=== PATIENT | male | born 1975 | race Caucasian/White ===

== ENCOUNTER 2019-09-22 22:44 | Emergency (ER) | payer MEDICARE, OTHER ==
[2019-09-22 22:55] VITALS: TEMP 98.4
[2019-09-22] MEDS ORDERED: LIDOCAINE 1% INJ 10MG/ML (20 ML MDV) SQ STA (23:03)
[2019-09-22] MEDS ORDERED: DIPH,PERTUS(ACELL)TETVAC-LF 0.5 ML VIAL IM ONE (23:52)
[2019-09-22] MEDS ORDERED: CEPHALEXIN 500 MG CAP PO STA (23:52)
[2019-09-22] MEDS ORDERED: CEPHALEXIN 500MG STARTER PACK 4 CAP BTL PO STA (23:52)
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
[2019-09-23 00:22] VITALS: BP 140/88; PULSE 80; RESP 16
== END 2019-09-23 00:21 | disposition home or self-care (01) ==
LOC: EC 22:44
DX: S80.812A Abrasion, left lower leg, initial encounter (principal); F17.200 Nicotine dependence, unspecified, uncomplicated; Z23 Encounter for immunization; W22.8XXA Striking against or struck by other objects, initial encounter; Y93.55 Activity, bike riding; Y92.828 Other wilderness area as the place of occurrence of the external cause
CPT/HCPCS: 90715; 99283; 12002; 90471; J2001

== ENCOUNTER 2021-07-08 09:58 | Emergency (ER) | payer MEDICARE, OTHER ==
[2021-07-08 10:04] VITALS: RESP 18; TEMP 97.6
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
[2021-07-08 11:06] VITALS: PULSE 89
--- NOTE | 2021-07-08 11:35 | US ---
EXAMINATION TYPE: US venous doppler duplex LE LT DATE OF EXAM: 07/08/2021 11:00 AM COMPARISON: NONE CLINICAL HISTORY: edema. 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 SIDE PERFORMED: Left TECHNIQUE: The lower extremity deep venous system is examined utilizing real time linear array sonog maulik with graded compression, doppler sonography and color-flow sonography. VESSELS IMAGED: Common Femoral Vein Deep Femoral Vein Greater Saphenous Vein * Femoral Vein Popliteal Vein Small Saphenous Vein * Proximal Calf Veins (* superficial vessels) Left Leg: Negative for DVT Grayscale, color doppler, spectral doppler imaging performed of the deep veins of the left lower extr emity. There is normal flow, compressibility, vascular waveforms. IMPRESSION: No ultrasound evidence for acute DVT in the left lower extremity.
[2021-07-08 12:00] VITALS: BP 122/95
== END 2021-07-08 12:01 | disposition home or self-care (01) ==
LOC: EEVIPCON 09:58 → EC 09:58
DX: I87.2 Venous insufficiency (chronic) (peripheral) (principal); I10 Essential (primary) hypertension; F17.200 Nicotine dependence, unspecified, uncomplicated
CPT/HCPCS: 99283

== ENCOUNTER 2022-11-24 12:56 | Emergency (ER) | payer MEDICARE, OTHER ==
[2022-11-24 13:07] VITALS: BP 180/111; PULSE 87; RESP 16; TEMP 97.4
[2022-11-24] MEDS ORDERED: CYCLOBENZAPRINE 10 MG TAB PO STA (13:36)
[2022-11-24] MEDS ORDERED: KETOROLAC 15 MG/ML 1 ML VIAL IM STA (13:36)
[2022-11-24] MEDS ORDERED: LIDOCAINE 5% PATCH TOPICAL STA (13:37)
[2022-11-24] MEDS ORDERED: ACET/COD 300 MG/30 MG STARTER PACK 6 TAB BTL PO STA (14:37)
--- NOTE | 2022-11-24 14:39 | ED ---
Back Pain HPI - General Chief Complaint: Back Pain/Injury Stated Complaint: back pain Time Seen by Provider: 11/24/22 12:58 Source: patient, EMS Limitations: no limitations - History of Present Illness Initial Comments: Patient is a 47-year-old male presenting with back pain. Back pain started 2 days ago. Patient shoveled snow the evening before which he thinks may have contributed to pain. Pain is in his left lower back without radiation. Taking Motrin for pain with some relief. He denies numbness and tingling in the legs, groin, and buttock region. Denies leg weakness. Denies loss of bowel and bladder function. - Related Data Previous Rx's Medication Instructions Recorded Cephalexin [Keflex] 500 mg PO Q6HR 10 Days #40 cap 07/08/21 Cyclobenzaprine [Flexeril] 10 mg PO HS PRN #7 tab 11/24/22 Ibuprofen [Motrin] 800 mg PO Q8HR PRN #30 tab 11/24/22 Lidocaine 5% Patch [Lidoderm 5% 1 patch TOPICAL DAILY #7 patch 11/24/22 Patch] Allergies Allergy/AdvReac Type Severity Reaction Status Date / Time No Known Allergies Allergy Verified 07/08/21 11:23 Review of Systems ROS Statement: Those systems with pertinent positive or pertinent negative responses have been documented in the HPI. ROS Other: All systems not noted in ROS Statement are negative. Past Medical History Past Medical History: No Reported History History of Any Multi-Drug Resistant Organisms: None Reported Past Surgical History: No Surgical Hx Reported Past Psychological History: No Psychological Hx Reported Smoking Status: Current every day smoker Past Alcohol Use History: Occasional Past Drug Use History: Marijuana General Exam Limitations: no limitations General appearance: alert, in no apparent distress Head exam: Present: atraumatic, normocephalic, normal inspection Eye exam: Present: normal appearance, PERRL, EOMI. Absent: scleral icterus, conjunctival injection, periorbital swelling Respiratory exam: Present: normal lung sounds bilaterally. Absent: respiratory distress, wheezes, rales, rhonchi, stridor Cardiovascular Exam: Present: regular rate, normal rhythm, normal heart sounds. Absent: systolic murmur, diastolic murmur, rubs, gallop, clicks Extremities exam: Present: normal inspection, full ROM, normal capillary refill Back exam: Present: normal inspection, full ROM, paraspinal tenderness (left lumbar). Absent: CVA tenderness (L), vertebral tenderness Neurological exam: Present: alert, oriented X3, CN II-XII intact Psychiatric exam: Present: normal affect, normal mood Skin exam: Present: warm, dry, intact, normal color. Absent: rash Course Vital Signs 11/24/22 13:02 Temperature 97.4 F L Pulse Rate 87 Respiratory 16 Rate Blood Pressure 180/111 O2 Sat by Pulse 97 Oximetry Medical Decision Making - Medical Decision Making Was pt. sent in by a medical professional or institution? No Did you speak to anyone other than the patient for history? No Did you review nursing and triage notes? Yes, and I agree. Symptoms consistent with nursing and triage notes. Were old charts reviewed? No Differential Diagnosis? MSK injury EKG interpreted by me (3pts min.)? NA X-rays interpreted by me (1pt min.)? NA CT interpreted by me (1pt min.)? NA U/S interpreted by me (1pt. min.)? NA What testing was considered but not performed? (CT, X-rays, U/S, labs)? Why? Spine x-ray was considered patient does not have vertebral tenderness. No symptoms or signs of cauda equina What meds were considered but not given? Why? None Did you discuss the management of the patient with other professionals? No Did you reconcile home meds? No, patient discharged. Was smoking cessation discussed for >3mins.? I discussed smoking cessation for greater than 3 minutes. The risk of smoking were discussed with the patient including but not limited to risks of cancer, stroke, coronary artery disease and COPD. Also discussed with patient were multiple methods of quitting smoking. Lastly we discussed the financial cost of smoking. Was critical care preformed (if so, how long)? No Were there social determinants of health that impacted care today? How? (Homele ssness, low income, unemployed, alcoholism, drug addiction, transportation, low edu. Level, literacy, decrease access to med. care, intermediate, rehab)? No Was there de-escalation of care discussed even if they declined? (Discuss DNR or withdrawal of care, Hospice)? No What co-morbidities impacted this encounter? (DM, HTN, Smoking, COPD, CAD, Cancer, CVA, Hep., AIDS, mental health diagnosis, sleep apnea, morbid obesity)? Smoking Was patient admitted / discharged? This is a 47-year-old male presenting with back pain. Back pain consistent with mechanical back pain. Patient treated in the emergency department with improvement of symptoms. Patient will be discharged with pain medication. We discussed conservative management. Patient also had high blood pressure in the emergency department. He takes lisinopril once daily. I did ask the nurse to recheck blood pressure which was not done. I asked for recheck prior to discharge however patient was discharged by the nurse prior to my dismissal. I did call patient and speak to him personally about his blood pressure. He does not check it at home although his does have a blood pressure cuff. Patient will check his blood pressure twice a day and record the values until follow-up appointment with primary care provider. Undiagnosed new problem with uncertain prognosis? No Drug Therapy requiring intensive monitoring for toxicity (Heparin, Nitro, Ins ulin, Cardizem)? No Were any procedures done? No Diagnosis/symptom? Mechanical back pain Acute, or Chronic, or Acute on Chronic? Acute Uncomplicated (without systemic symptoms) or Complicated (systemic symptoms)? NA Side effects of treatment? No Exacerbation, Progression, or Severe Exacerbation] NA Poses a threat to life or bodily function? No Dr. Stokes is my attending. Disposition Clinical Impression: Mechanical back pain Disposition: HOME SELF-CARE Condition: Good Instructions (If sedation given, give patient instructions): Acute Low Back Pain (ED) Additional Instructions: Take medication as directed. Do not drink alcohol or operate machinery while taking Flexeril as it can make you sleepy. Applying warm compress to injury may help pain as well. Follow-up with primary care provider in one to 2 days. Return to the emergency department if you experience new, concerning, or worsening symptoms. Prescriptions: Cyclobenzaprine [Flexeril] 10 mg PO HS PRN #7 tab PRN Reason: Muscle Spasm Lidocaine 5% Patch [Lidoderm 5% Patch] 1 patch TOPICAL DAILY #7 patch Ibuprofen [Motrin] 800 mg PO Q8HR PRN #30 tab PRN Reason: Pain Is patient prescribed a controlled substance at d/c from ED?: No Referrals: Rin Lerma MD [Primary Care Provider] - 1-2 days Time of Disposition: 14:39
== END 2022-11-24 14:54 | disposition home or self-care (01) ==
LOC: EC 12:56
DX: M54.50 Low back pain, unspecified (principal); F17.200 Nicotine dependence, unspecified, uncomplicated; F12.90 Cannabis use, unspecified, uncomplicated
CPT/HCPCS: 96372; 99284; J1885; 99283

== ENCOUNTER → 2024-06-19 | Outpatient (CLI) | payer MEDICARE, OTHER ==
--- NOTE | 2024-06-19 16:30 | CTL ---
EXAMINATION TYPE: CT Low Dose Lung DATE OF EXAM: 06/19/2024 4:03 PM CLINICAL INDICATION:Male, 49 years old with history of R55 Syncope; R41.3 Memory difficulties; Z12.2; Current every day smoker, 1 ppd x 35 years. , history of tobacco use. COMPARISON: None. TECHNIQUE: Multiple axial non-contrast scans were obtained from approximately the lung apices through the upper abdomen. Coronal and sagittal reformatted images were obtained. Low dose technique was uti lized. CT DLP: 125.4 mGycm, Automated exposure control for dose reduction was used. CT Contrast: Contrast used: None Oral contrast used: None FINDINGS: ======== Lack of intravenous contrast and low dose technique limits the evaluation of the vascular and soft ti ssue structures. LUNGS: No evidence of pulmonary fibrosis. No evidence of focal consolidation, pneumothorax or pleural effusion. Centrilobular emphysema changes. Nodules: RUL: None. RML: None. RLL: None. CHRIS: 5 mm series 5 image 43 LLL: 5 x 4 mm series 5 image 44 AIRWAY: Patent and unremarkable. HEART: Size within normal limits. MEDIASTINUM: No gross evidence of adenopathy. VASCULATURE: No aortic aneurysm. MUSCULOSKELETAL: No acute osseous abnormalities SOFT TISSUES/LYMPH NODES: Unremarkable. LOWER NECK: No significant findings. UPPER ABDOMEN: No significant findings. IMPRESSION: 1. No clinically significant pulmonary nodules. 2. Mild emphysema. CT LUNG RAD AND CT CHEST RECOMMENDATION: Lung-Rad 2 Benign Appearance or Behavior: Continue annual sc reening with LDCT in 12 months. S Modifier (other clinically significant findings): None Recommend smoking cessation (if current smoker), or continuation of smoking cessation (if prior smoke r). Annual screening for lung cancer with low-dose computed tomography is recommended in adults ages 55 to 77 years who have a 30 pack-year smoking history and currently smoke or have quit within the pa st 15 years. Screening should be discontinued once a person has not smoked for 15 years or develops a health problem that substantially limits life expectancy or the ability or willingness to have curat chance lung surgery. Lung rads 2021 [email or web address]
--- NOTE | 2024-06-19 16:52 | MR ---
EXAMINATION TYPE: MR brain wo/w con DATE OF EXAM: 06/19/2024 4:36 PM CLINICAL INDICATION:Male, 49 years old with history of R55 Syncope; R41.3 Memory difficulties; Z12.2; PHH, Syncope, fell and hit shoulder and passed out, memory difficulties COMPARISON: None TECHNIQUE: Multi planar, multi sequence imaging was performed through the brain including: T1, T2, In version recovery, susceptibility weighted imaging and gradient echo imaging and Diffusion weighted im aging. The patient was then given intravenous contrast and multi planar, T1 fat-saturation images wer e obtained. IV Contrast: 9 cc Gadavist FINDINGS: The mg-white junctions, ventricular system, basal cisterns appear unremarkable. Diffusion-weighted imaging shows no evidence of restricted diffusion to suggest acute/subacute infarct. Intracranial ar terial flow voids are maintained. Midline structures show no abnormality. Scattered foci of high T2 s ignal intensity are seen within the periventricular white matter. The susceptibility weighted images do not reveal any evidence for micro-hemorrhage. After administration of gadolinium, no abnormal enha ncement is seen. The bone marrow signal is within normal limits. Paranasal sinuses and mastoid air cells: No significant paranasal sinus disease. Visualized orbits: Orbital contents are intact. IMPRESSION: 1. No evidence of intracranial mass, acute/subacute infarct, or abnormal enhancement. 2. Nonspecific white matter changes, likely related to small vessel ischemic disease.
--- NOTE | 2024-06-19 18:07 | US ---
EXAMINATION TYPE: US carotid duplex BILAT DATE OF EXAM: 06/19/2024 COMPARISON: NONE CLINICAL INDICATION: Male, 49 years old with history of R55 SYNCOPE, R413 MEMORY DIFFICULTIES; Curren t smoker, hx of hypertension. Syncope, memory difficulties. TECHNIQUE: Carotid duplex ultrasound examination. Indirect Doppler criteria was utilized. FINDINGS: EXAM MEASUREMENTS: RIGHT: Peak Systolic Velocity (PSV) cm/sec ----- Right CCA: 87.1 ----- Right ICA: 101.8 ----- Right ECA: 117.3 ICA/CCA ratio: 1.2 RIGHT: End Diastole cm/sec ----- Right CCA: 27.5 ----- Right ICA: 39.1 ----- Right ECA: 9.8 LEFT: Peak Systolic Velocity (PSV) cm/sec ----- Left CCA: 86.7 ----- Left ICA: 114.7 ----- Left ECA: 114.7 ICA/CCA ratio: 1.3 LEFT: End Diastole cm/sec ----- Left CCA: 27.4 ----- Left ICA: 39.6 ----- Left ECA: 21.5 VERTEBRALS (direction of flow): Right Vertebral: Antegrade Left Vertebral: Antegrade Rhythm: Normal SWITCHBOARD RECEPTIONIST NOTES: Minimal plaque seen within bilateral bulbs. No elevated velocities at this time. IMPRESSION: No ultrasound evidence for hemodynamically significant stenosis of the bilateral visualized carotid a rterial systems. Criteria for Assigning % of Stenosis / Diameter reduction (Estimation based on the indirect measurements of the internal carotid artery velocities (ICA PSV). 1. Normal (no stenosis)=ICA PSV < 125 cm/s: ratio < 2.0: ICA EDV<40 cm/s. 2. Less than 50% stenosis=ICA PSV < 125 cm/s: ratio < 2.0: ICA EDV<40 cm/s. 3. 50 to 69% stenosis=ICA PSV of 125 to 230 cm/s: ration 2.0 ? 4.0: ICA EDV 40-100 cm/s. 4. Greater than 70% stenosis to near occlusion= ICA PSV > 230 cm/s: ratio > 4.0: ICA EDV > 100 cm/s. 5. Near occlusion= ICA PSV velocities may be low or undetectable: variable ratio and ICA EDV. 6. Total occlusion=unable to detect flow.
== END | disposition home or self-care (01) ==
LOC: RADMRIMAIN 15:18
PROVIDERS: ATTEND Family Medicine
DX: Z12.2 Encounter for screening for malignant neoplasm of respiratory organs (principal); R55 Syncope and collapse; F17.210 Nicotine dependence, cigarettes, uncomplicated; R41.3 Other amnesia; J43.9 Emphysema, unspecified; W19.XXXA Unspecified fall, initial encounter
CPT/HCPCS: 93880; 71271; 70553; A9585

== ENCOUNTER 2024-07-12 11:54 | Emergency (ER) | payer MEDICARE, OTHER ==
[2024-07-12] MEDS ORDERED: SODIUM CHLORIDE 0.9% 1,000 ML BAG ONE (13:00)
--- NOTE | 2024-08-13 16:17 | XR ---
Patient Carlos Reyez ID [id number] Order # EXAMINATION TYPE: XR chest 2V DATE OF EXAM: 07/13/2024 COMPARISON: No comparison available on downtime PACS. INDICATION: Syncope TECHNIQUE: Frontal and lateral views of the chest are obtained. FINDINGS: The heart size is normal. The pulmonary vasculature is normal. The lungs are clear. IMPRESSION: 1. No acute pulmonary process.
== END 2024-07-12 17:19 | disposition home or self-care (01) ==
LOC: EC 11:54
CPT/HCPCS: 71046; 93005; 96360; 96361; 99284

== ENCOUNTER → 2025-06-20 | Outpatient (CLI) | payer MEDICARE, OTHER ==
--- NOTE | 2025-06-20 09:52 | US ---
EXAMINATION TYPE: US abdomen complete DATE OF EXAM: 06/20/2025 COMPARISON: NONE CLINICAL INDICATION: Male, 50 years old with history of F10.90 ALCOHOL USE Z12.2 LUNG CA SCR F17.210 CURRE; TECHNIQUE: Grayscale and color Doppler imaging of the abdomen was performed. FINDINGS: EXAM MEASUREMENTS: Liver Length: 16.8 cm Gallbladder Wall: 0.2 cm CBD: 0.4 cm, color Doppler imaging was utilized to isolate the common bile duct for measurement. Spleen: 12.6 cm Right Kidney: 10.6 x 4.8 x 4.1 cm Left Kidney: 11.2 x 4.5 x 4.6 cm Pancreas: visualized portions wnl, limited by overlying midline bowel gas Liver: course echotexture compatible with mild fatty infiltration. Gallbladder: limited by rib shadowing, visualized portions appear wnl Evidence for sonographic Hammond's sign: no CBD: visualized portions wnl, limited by overlying bowel gas Spleen: wnl Right Kidney: wnl Left Kidney: wnl Upper IVC: wnl Abd Aorta: proximal portion measures borderline aneurysmal measuring 3.1 cm AP, mid and distal porti ons wnl IMPRESSION: Mild fatty infiltration enlarged liver. Fusiform prominence proximal abdominal aorta. [facility], , 06/20/2025 9:49 AM
--- NOTE | 2025-06-22 18:48 | CTL ---
EXAMINATION TYPE: CT Low Dose Lung DATE OF EXAM: 06/20/2025 9:41 AM COMPARISON: 06/19/2024 CLINICAL INDICATION: Male, 50 years old with history of Z12.2 LUNG CA SCR F17.210 CURRE, Current smok er. 1PPD x34yrs., History of tobacco use. TECHNIQUE: Low dose computed tomography scan was performed through the chest at 1 mm thick sections a nd reconstructed images in multiple planes at 1 mm and [address] DLP: 96.5 mGycm, CT CTDI: 2.6 mGy, Automated exposure control for dose reduction was used. CT DIAGNOSTIC QUALITY: Satisfactory FINDINGS: Heart normal size without pericardial effusion. LAD and circumflex coronary artery calcifications are noted. Ectatic aortic root at 3.9 cm, probably overestimated due to motion. Minimal atherosclerotic arch heriberto cifications and conventional arch vessel branching anatomy. No thoracic lymph adenopathy by CT size criteria. Mild diffuse bronchial wall thickening. Mild emphysematous change. Mild right apical pleural-parenchy mal scarring. No consolidation or pleural effusion. A few scattered 7 mm and smaller pulmonary nodule s remain unchanged. No new or suspicious pulmonary nodules identified. Tiny hiatal hernia. Mild degenerative disc disease throughout the lower thoracic spine. IMPRESSION: 1. LungRADS 2, benign. A few scattered 7 mm and smaller pulmonary nodules remain unchanged. 2. Bronchial wall thickening suggests bronchitis or chronic asthma. Advise smoking cessation. CT LUNG RAD AND CT CHEST RECOMMENDATION: Lung-Rad 2 Benign Appearance or Behavior: Continue annual sc reening with LDCT in 12 months. S Modifier (other clinically significant findings): None [facility], Workstation: [email or web address] [email or web address], 06/22/2025 6:46 PM
== END | disposition home or self-care (01) ==
LOC: RADUSWWP 08:48
PROVIDERS: ATTEND Family Medicine
DX: Z12.2 Encounter for screening for malignant neoplasm of respiratory organs (principal); F17.210 Nicotine dependence, cigarettes, uncomplicated; F10.90 Alcohol use, unspecified, uncomplicated; R16.0 Hepatomegaly, not elsewhere classified; K76.0 Fatty (change of) liver, not elsewhere classified; R91.8 Other nonspecific abnormal finding of lung field
CPT/HCPCS: 71271; 76700